=== PATIENT | female | born 1990 | race Caucasian/White ===

== ENCOUNTER → 2020-08-17 11:21 | Outpatient (BNVA) | payer OTHER, SELFPAY | PROVIDERS: Family Provider Electrodiagnostic Medicine; PCP Electrodiagnostic Medicine; Visit Provider Family Medicine | DX: Z20.828 Contact with and (suspected) exposure to other viral communicable diseases (principal); Z11.59 Encounter for screening for other viral diseases | CPT/HCPCS: 87635 ==

== ENCOUNTER → 2021-06-20 10:32 | Outpatient (BNVA) | payer OTHER, SELFPAY | PROVIDERS: PCP Electrodiagnostic Medicine; Visit Provider Nurse Practitioner Women's Health | DX: Z01.419 Encounter for gynecological examination (general) (routine) without abnormal findings (principal) | CPT/HCPCS: 88175 ==

== ENCOUNTER → 2022-07-31 13:27 | Outpatient (BNVA) | payer OTHER, SELFPAY | PROVIDERS: PCP Family Medicine; Visit Provider Family Medicine | DX: Z00.00 Encounter for general adult medical examination without abnormal findings (principal); R63.5 Abnormal weight gain | CPT/HCPCS: 80053; 80061; 82607; 84443; 85025 ==

== ENCOUNTER → 2024-04-15 08:14 | Outpatient (BNVA) | payer BC, SELFPAY | PROVIDERS: PCP Family Medicine; Visit Provider Family Medicine | DX: R53.83 Other fatigue (principal); I88.9 Nonspecific lymphadenitis, unspecified; E55.9 Vitamin D deficiency, unspecified; E03.9 Hypothyroidism, unspecified | CPT/HCPCS: 80053; 80061; 82607; 82652; 84443; 85025 ==

== ENCOUNTER 2024-04-23 15:54 | Outpatient (CLI) | payer BC, SELFPAY ==
--- NOTE | 2024-04-23 16:15 | USR_ITS ---
PROCEDURE INFORMATION: Exam: US Soft Tissue Head and Neck, Soft Tissue Exam date and time: 04/23/2024 4:03 PM Age: 33 years old Clinical indication: Mass, lump, or swelling in neck; Bilateral; Additional info: I88.9 - nonspecific lymphadenitis, unspecified TECHNIQUE: Imaging protocol: Real-time ultrasound scan of the head and neck with image documentation. Exam focused on the soft tissue in the region of clinical concern. COMPARISON: No relevant prior studies available. FINDINGS: Lymph nodes: Bilateral submandibular and submental lymph nodes are noted which have normal fatty andi. Largest left submandibular lymph node measures 1.8 x 0.7 x 1.8 centimetres and has a normal fatty andi. The largest right submandibular lymph node measures 1.8 x 0.5 x 2.3 cm and has a normal fatty andi. Soft tissues: Unremarkable. No fluid collections. US/US soft tissue head neck [id number] IMPRESSION: Bilateral submandibular lymph nodes as described above. They have normal fatty andi.
== END 2024-04-23 15:55 | disposition home or self-care (01) ==
LOC: RAD 15:55
PROVIDERS: PCP Family Medicine; Visit Provider Family Medicine
DX: I88.9 Nonspecific lymphadenitis, unspecified (principal)
CPT/HCPCS: 76536

== ENCOUNTER 2024-07-17 02:43 | Observation (INO) | payer BC, SELFPAY ==
[2024-07-17] VITALS (21 sets, daily range): BP systolic 93–121; BP diastolic 56–75; PULSE 89–117; RESP 9–20; TEMP 36.8–37.3; O2SAT 97–100; BMI 23.3
[2024-07-17 03:17] LABS: Basophils % 0.4 %; Eosinophils # 0.1 10^3/uL (0.0-0.8); Hematocrit 39.4 % (36-47); Lymphocytes # 1.7 10^3/uL (0.8-4.8); Mean Corpuscular HGB Conc 33.8 g/dL (30-55); Mean Corpuscular Hemoglobin 31.3 pg (27-33); Mean Corpuscular Volume 92.7 fl (85-98); Mean Platelet Volume 9.6 fL (7.4-10.4); Monocytes # 0.4 10^3/uL (0.2-0.9); Monocytes % 5.9 %; Neutrophils # 4.56 10^3/uL (1.8-7.7); Neutrophils % 67.6 %; Nucleated Red Blood Cells % 0 %; Platelet Count 298 10^3/cmm (157-399); Red Blood Count 4.25 10^6/uL (3.85-5.65); Red Cell Distribution Width 12.2 % (12.1-15.1); White Blood Count 6.76 10^3/uL (3.29-11.43)
--- NOTE | 2024-07-17 03:18 | ED_ITS ---
Documented by User: Kareem Whipple DO 07/17/24 03:20 HPI - Abdominal Pain 2 General: Chief Complaint: Abdominal Pain Stated Complaint: Lower abd pain Time Seen by Provider: 07/17/24 02:57 History of Present Illness: Presents to the ER with complaints of epigastric abdominal pain. Patient says started about a week ago. Patient does say eating and drinking makes it worse. She said the pain is typically intermittent but tonight it started about 9 PM after she ate and will go away. There is positive nausea vomiting diarrhea. Patient has never had any abdominal surgeries still has her gallbladder. Patient does take Protonix twice a day for stomach. Related Data Home Medications Medication Instructions Recorded Confirmed spironolactone 100 mg tablet 100 mg PO DAILY 04/13/20 04/15/24 levonorgestrel 21 mcg/24 hr (up to intrauterine 06/20/21 04/15/24 8 years) 52 mg intrauterine device (Mirena) Previous Rx's Medication Instructions Recorded semaglutide 0.25 mg or 0.5 mg (2 0.5 mg (0.736 mL) SUBCUT .[id number] 04/15/24 mg/3 mL) subcutaneous pen injector #3 mL (Ozempic) Allergies Allergy/AdvReac Type Severity Reaction Status Date / Time doxycycline Allergy vomiting Verified 07/17/24 02:56 Penicillins Allergy hives Verified 07/17/24 02:56 swelling, breathing issues Review of Systems 2 General: Reports: 10 or more systems reviewed and unremarkable except in HPI and below PFSH ED 2 PFSH: Medical History No pertinent past medical history neghx: htn,dm,thyroid,dvt/pe PCP: Dr. Segovia Urinary incontinence 03/07/2017: KEYANA. Found to have weak pelvic musculature. Kegel's exercises recommended. Surgical History Hx of oral surgery (~2010) Family History Grandfather Hypertension paternal Father Hypertension Grandmother Diabetes maternal Stroke maternal Denies family history of Colon cancer Ovarian cancer Heart disease Hypercholesteremia Breast cancer Uterine cancer Thyroid disease Social History (Reviewed 07/17/24 @ 03:19 by DARLING Guan Smoking and tobacco/nicotine status: never used tobacco/nicotine Physical Exam 2 Const: COMMON NORMALS: no acute distress, average body habitus, patient oriented x3, no limitations, healthy appearing, alert and well nourished HENMT: COMMON NORMALS: normocephalic, atraumatic, hearing grossly normal bilaterally, external ears normal, Normal external nose present and moist oral mucous membranes HEAD & SCALP: normocephalic and atraumatic NOSE: Normal external nose present EXTERNAL EAR: Yes external ears normal Neck/C-Spine: COMMON NORMALS: no JVD Chest: COMMONS NORMALS: normal inspection of the chest and normal palpation of entire chest wall Resp: COMMON NORMALS: normal respiratory effort, No retractions, No use of accessory muscles and clear to auscultation bilaterally AUSCULTATION: clear to auscultation bilaterally Cardio: COMMON NORMALS: no JVD, regular rate, regular rhythm, S1 normal heart sound present, S2 normal heart sound present, No gallops present (Cardio), No clicks present (Cardio), No murmurs present (Cardio) and No rub (Cardio) R ATE: regular rate RHYTHM: regular rhythm HEART SOUNDS: S1 normal heart sound present and S2 normal heart sound present GI: COMMON NORMALS: Normal to inspection, nondistended, normoactive bowel sounds present, Soft to palpation, No hepatosplenomegaly present and no masses; negative for non-tender (Tender to palpate over epigastric area) PALPATION: Y es Soft to palpation and Yes No hepatosplenomegaly present Neuro: COMMON NORMALS: patient oriented x3 SENSORIUM/ORIENTATION: Yes alert Course 2 Vital Signs: Vital signs: Vital Signs Temperature 98.2 F 07/17/24 02:56 Pulse Rate 93 07/17/24 07:00 Respiratory Rate 16 07/17/24 08:17 Blood Pressure 99/63 07/17/24 07:00 Pulse Oximetry 100 07/17/24 08:17 Oxygen Delivery Me thod Room Air 07/17/24 04:11 MDM - Abdominal Pain Medical Records I reviewed the patient's medical records. Lab Data I reviewed the patient's lab results. 07/17/24 03:11 07/17/24 03:11 Labs/Radiology: Laboratory Results WBC 6.76 10^3/uL (3.29-11.43) 07/17/24 03:11 RBC 4.25 10^6/uL (3.85-5.65) 07/17/24 03:11 Hgb 13.30 g/dL (11.27-16.99) 07/17/24 03:11 Hct 39.4 % (36-47) 07/17/24 03:11 MCV 92.7 fl (85-98) 07/17/24 03:11 MCH 31.3 pg (27-33) 07/17/24 03:11 MCHC 33.8 g/dL (30-55) 07/17/24 03:11 RDW 12.2 % (12.1-15.1) 07/17/24 03:11 Plt Count 298 10^3/cmm (157-399) 07/17/24 03:11 MPV 9.6 fL (7.4-10.4) 07/17/24 03:11 Neut % (Auto) 67.6 % 07/17/24 03:11 Lymph % (Auto) 25.0 % 07/17/24 03:11 [place] % (Auto) 5.9 % 07/17/24 03:11 Eos % (Auto) 1.0 % 07/17/24 03:11 Baso % (Auto) 0.4 % 07/17/24 03:11 Neut # (Auto) 4.56 10^3/uL (1.8-7.7) 07/17/24 03:11 Lymph # (Auto) 1.7 10^3/uL (0.8-4.8) 07/17/24 03:11 [place] # (Auto) 0.4 10^3/uL (0.2-0.9) 07/17/24 03:11 Eos # (Auto) 0.1 10^3/uL (0.0-0.8) 07/17/24 03:11 Baso # (Auto) 0.0 10^3/uL (0.0-0.1) 07/17/24 03:11 Nucleated RBC % (auto) 0 % 07/17/24 03:11 Nucleated RBCs # 0.0 /100WBC 07/17/24 03:11 Sodium 142 mmol/L (136-145) 07/17/24 03:11 Potassium 3.5 mmol/L (3.5-5.1) 07/17/24 03:11 Chloride 108 mmol/L (98-107) H 07/17/24 03:11 Carbon Dioxide 24 mmol/L (22-29) 07/17/24 03:11 Anion Gap 13.5 (5-19) 07/17/24 03:11 BUN 21 mg/dL (6-20) H 07/17/24 03:11 Creatinine 0.7 mg/dL (0.5-0.9) 07/17/24 03:11 GFR Calculation 95.8 mL/min (90-130) 07/17/24 03:11 Glucose 98 mg/dL (65-115) 07/17/24 03:11 Calculated Osmolality 297 mOsm/kg (285-295) H 07/17/24 03:11 Calcium 8.9 mg/dL (8.5-10.5) 07/17/24 03:11 Magnesium 1.8 mg/dL (1.7-2.3) 07/17/24 03:11 Total Bilirubin 0.4 mg/dL (0.15-1.2) 07/17/24 03:11 AST 12 U/L (0-32) 07/17/24 03:11 ALT 12 U/L (0-33) 07/17/24 03:11 Alkaline Phosphatase 85 U/L (35-105) 07/17/24 03:11 Total Protein 7.4 g/dL (6.6-8.7) 07/17/24 03:11 Albumin 4.6 g/dL (3.5-5.2) 07/17/24 03:11 Globulin 2.8 g/dL (1.3-4.6) 07/17/24 03:11 Lipase 38 U/L (13-60) 07/17/24 03:11 HCG, Qual Negative (Negative) 07/17/24 03:11 No radiology studies performed this visit Discharge Plan Discharge Patient Disposition: Placed in Observation Clinical Impression: Acute calculous cholecystitis, Cholelithiasis Condition: Stable Prescriptions: No Action spironolactone 100 mg tablet 100 mg PO DAILY Mirena 20 mcg/24 hours (6 yrs) 52 mg intrauterine device intrauterine Ozempic 0.25 mg or 0.5 mg (2 mg/3 mL) pen injector 0.5 mg SUBCUT .[id number] Qty: 3 0RF Referrals: Hung Hoyos DO [Primary Care Provider] - Sign Out Sign Out Data: Patient Sign Out occurred on 07/17/24 at 06:41. Patient's care was discussed, and care was transferred from Kareem Whipple DO to Alec Hernandez DO. Coding Level of Care Code ED Stamp Clerk for Chg Fwd Documented by User: Alec Hernandez DO 07/17/24 08:43 HPI - Abdominal Pain 2 General: Chief Complaint: Abdominal Pain Stated Complaint: Lower abd pain Time Seen by Provider: 07/17/24 02:57 Related Data Home Medications Medication Instructions Recorded Confirmed spironolactone 100 mg tablet 100 mg PO DAILY 04/13/20 04/15/24 levonorgestrel 21 mcg/24 hr (up to intrauterine 06/20/21 04/15/24 8 years) 52 mg intrauterine device (Mirena) Previous Rx's Medication Instructions Recorded semaglutide 0.25 mg or 0.5 mg (2 0.5 mg (0.736 mL) SUBCUT .[id number] 04/15/24 mg/3 mL) subcutaneous pen injector #3 mL (Ozempic) Allergies Allergy/AdvReac Type Severity Reaction Status Date / Time doxycycline Allergy vomiting Verified 07/17/24 02:56 Penicillins Allergy hives Verified 07/17/24 02:56 swelling, breathing issues PFSH ED 2 PFSH: Medical History No pertinent past medical history neghx: htn,dm,thyroid,dvt/pe PCP: Dr. Segovia Urinary incontinence 03/07/2017: KEYANA. Found to have weak pelvic musculature. Kegel's exercises recommended. Surgical History Hx of oral surgery (~2010) Family History Grandfather Hypertension paternal Father Hypertension Grandmother Diabetes maternal Stroke maternal Denies family history of Colon cancer Ovarian cancer Heart disease Hypercholesteremia Breast cancer Uterine cancer Thyroid disease Social History Smoking and tobacco/nicotine status: never used tobacco/nicotine Course 2 Vital Signs: Vital signs: Vital Signs Temperature 98.2 F 07/17/24 02:56 Pulse Rate 93 07/17/24 07:00 Respiratory Rate 16 07/17/24 08:17 Blood Pressure 99/63 07/17/24 07:00 Pulse Oximetry 100 07/17/24 08:17 Oxygen Delivery Me thod Room Air 07/17/24 04:11 MDM - Abdominal Pain Medical Decision Making Findings consistent with acute cholecystitis on ultrasound liver white count and liver function are normal patient continues significant pain. We will admit to Dr. Dang discussed with him patient has been given Cipro and Flagyl since she is allergic to penicillin and cannot take Zosyn. Pain medications have been given as well. Dr. Dang seen the patient in the emergency room. Lab Data 07/17/24 03:11 07/17/24 03:11 Labs/Radiology: Laboratory Results WBC 6.76 10^3/uL (3.29-11.43) 07/17/24 03:11 RBC 4.25 10^6/uL (3.85-5.65) 07/17/24 03:11 Hgb 13.30 g/dL (11.27-16.99) 07/17/24 03:11 Hct 39.4 % (36-47) 07/17/24 03:11 MCV 92.7 fl (85-98) 07/17/24 03:11 MCH 31.3 pg (27-33) 07/17/24 03:11 MCHC 33.8 g/dL (30-55) 07/17/24 03:11 RDW 12.2 % (12.1-15.1) 07/17/24 03:11 Plt Count 298 10^3/cmm (157-399) 07/17/24 03:11 MPV 9.6 fL (7.4-10.4) 07/17/24 03:11 Neut % (Auto) 67.6 % 07/17/24 03:11 Lymph % (Auto) 25.0 % 07/17/24 03:11 [place] % (Auto) 5.9 % 07/17/24 03:11 Eos % (Auto) 1.0 % 07/17/24 03:11 Baso % (Auto) 0.4 % 07/17/24 03:11 Neut # (Auto) 4.56 10^3/uL (1.8-7.7) 07/17/24 03:11 Lymph # (Auto) 1.7 10^3/uL (0.8-4.8) 07/17/24 03:11 [place] # (Auto) 0.4 10^3/uL (0.2-0.9) 07/17/24 03:11 Eos # (Auto) 0.1 10^3/uL (0.0-0.8) 07/17/24 03:11 Baso # (Auto) 0.0 10^3/uL (0.0-0.1) 07/17/24 03:11 Nucleated RBC % (auto) 0 % 07/17/24 03:11 Nucleated RBCs # 0.0 /100WBC 07/17/24 03:11 Sodium 142 mmol/L (136-145) 07/17/24 03:11 Potassium 3.5 mmol/L (3.5-5.1) 07/17/24 03:11 Chloride 108 mmol/L (98-107) H 07/17/24 03:11 Carbon Dioxide 24 mmol/L (22-29) 07/17/24 03:11 Anion Gap 13.5 (5-19) 07/17/24 03:11 BUN 21 mg/dL (6-20) H 07/17/24 03:11 Creatinine 0.7 mg/dL (0.5-0.9) 07/17/24 03:11 GFR Calculation 95.8 mL/min (90-130) 07/17/24 03:11 Glucose 98 mg/dL (65-115) 07/17/24 03:11 Calculated Osmolality 297 mOsm/kg (285-295) H 07/17/24 03:11 Calcium 8.9 mg/dL (8.5-10.5) 07/17/24 03:11 Magnesium 1.8 mg/dL (1.7-2.3) 07/17/24 03:11 Total Bilirubin 0.4 mg/dL (0.15-1.2) 07/17/24 03:11 AST 12 U/L (0-32) 07/17/24 03:11 ALT 12 U/L (0-33) 07/17/24 03:11 Alkaline Phosphatase 85 U/L (35-105) 07/17/24 03:11 Total Protein 7.4 g/dL (6.6-8.7) 07/17/24 03:11 Albumin 4.6 g/dL (3.5-5.2) 07/17/24 03:11 Globulin 2.8 g/dL (1.3-4.6) 07/17/24 03:11 Lipase 38 U/L (13-60) 07/17/24 03:11 HCG, Qual Negative (Negative) 07/17/24 03:11 Discharge Plan Discharge Patient Disposition: Placed in Observation Clinical Impression: Acute calculous cholecystitis, Cholelithiasis Condition: Stable Prescriptions: No Action spironolactone 100 mg tablet 100 mg PO DAILY Mirena 20 mcg/24 hours (6 yrs) 52 mg intrauterine device intrauterine Ozempic 0.25 mg or 0.5 mg (2 mg/3 mL) pen injector 0.5 mg SUBCUT .[id number] Qty: 3 0RF Referrals: Hung Hoyos DO [Primary Care Provider] - Sign Out Sign Out Data: Patient Sign Out occurred on 07/17/24 at 06:41. Patient's care was discussed, and care was transferred from Kareem Whipple DO to Alec Hernandez DO. Coding Level of Care Code ED Stamp Clerk for Alfred Lee
[2024-07-17 03:32] LABS: Alanine Aminotransferase 12 U/L (0-33); Albumin Level 4.6 g/dL (3.5-5.2); Alkaline Phosphatase 85 U/L (35-105); Anion Gap 13.5 (5-19); Aspartate Amino Transferase 12 U/L (0-32); Blood Urea Nitrogen 21 mg/dL (6-20); Calcium 8.9 mg/dL (8.5-10.5); Carbon Dioxide 24 mmol/L (22-29); Chloride 108 mmol/L (98-107); Creatinine Clr Calc Pharmacy 95.2557; Globulin 2.8 g/dL (1.3-4.6); Glomerular Filtration Rate 95.8 mL/min (90-130); Glucose 98 mg/dL (65-115); Lipase 38 U/L (13-60); Magnesium 1.8 mg/dL (1.7-2.3); Osmolality Calculated 297 mOsm/kg (285-295); Potassium 3.5 mmol/L (3.5-5.1); Sodium 142 mmol/L (136-145); Total Bilirubin 0.4 mg/dL (0.15-1.2); Total Protein 7.4 g/dL (6.6-8.7)
[2024-07-17] MEDS: lidocaine 2% viscous 15 ML, aluminum-mag hydrox-simethicon 30 ML, sucralfate oral liq 1 GM PO (03:58)
--- NOTE | 2024-07-17 04:31 | USR_ITS ---
PROCEDURE INFORMATION: Exam: US Abdomen, Limited; Right Upper Quadrant Exam date and time: 07/17/2024 5:57 AM Age: 33 years old Clinical indication: Abdominal pain; Epigastric; Additional info: Ruq/epigastric pain, n/v, worse when eating TECHNIQUE: Imaging protocol: Real time ultrasound of the abdomen with image documentation. Limited exam focused on the right upper quadrant. COMPARISON: No relevant prior studies available. FINDINGS: Liver: Simple cyst within the left hepatic lobe 0.8 cm diameter. Gallbladder: Cholelithiasis. Gallbladder wall thickness 6 mm. Negative for pericholecystic fluid. Biliary ducts: Normal. No stones. No dilation. Pancreas: Visualized pancreas is unremarkable. Right kidney: Normal. No mass. No hydronephrosis. Portal venous: Main portal vein is patent. Normal flow direction. US/US abdomen limited [id number] IMPRESSION: 1. Cholelithiasis. Gallbladder wall thickening. Consider acute cholecystitis. 2. Recommend HIDA scan evaluation.
--- NOTE | 2024-07-17 04:38 | PC.NURSE ---
Rounded on pt. No relief from gi cocktail. aware. US ordered and contacted.
[2024-07-17] MEDS: ketorolac 30 mg/mL INJ IVP (04:55)
[2024-07-17] MEDS: ondansetron 2 mg/ML SDV 2 mL 4 MG IVP (04:55)
[2024-07-17] MEDS: sodium chloride 0.9% 1,000 ML 999 ML IV (08:17)
[2024-07-17] MEDS: morphine 4 mg/mL SDV 1 mL IVP (08:17)
[2024-07-17] MEDS: famotidine 20 mg/2 mL INJ 40 MG IVP (08:18)
[2024-07-17] MEDS: ciprofloxacin 400 MG/200 ML PREMIX 200 MG IV (08:19)
[2024-07-17 08:22] LABS: HCG, Serum Qual Negative (Negative)
--- NOTE | 2024-07-17 08:36 | P.HP_ITS ---
Providers/Chief Complaint 2 Primary Care Provider: Hung Hoyos DO Chief Complaint: Lower abd pain History of Present Illness Amirah Marinelli is a 33 year old female Patient is a 33-year-old female who presents to the hospital with right upper quadrant abdominal pain. Pain has been intermittent for the last week but over the last 24 hours it become constant the patient had some dry heaving also. Workup in the ED showed normal labs white count but he has ultrasound of the right upper quadrant is concerning for cholecystitis. Review of Systems 2 General: Reports: 10 or more systems reviewed and unremarkable except in HPI and below Medications/Allergies Home Medications Medication Instructions Recorded Confirmed Last Taken Type spironolactone 100 mg tablet 100 mg PO DAILY 04/13/20 04/15/24 Unknown History levonorgestrel 21 mcg/24 hr (up to intrauterine 06/20/21 04/15/24 Unknown History 8 years) 52 mg intrauterine device (Mirena) semaglutide 0.25 mg or 0.5 mg (2 0.5 mg (0.736 mL) SUBCUT .[id number] 04/15/24 04/15/24 Unknown Rx mg/3 mL) subcutaneous pen injector #3 mL (Ozempic) Allergies Allergy/AdvReac Type Severity Reaction Status Date / Time doxycycline Allergy vomiting Verified 07/17/24 02:56 Penicillins Allergy hives Verified 07/17/24 02:56 swelling, breathing issues PFSH Acute 2 PFSH: Medical History No pertinent past medical history neghx: htn,dm,thyroid,dvt/pe PCP: Dr. Segovia Urinary incontinence 03/07/2017: KEYANA. Found to have weak pelvic musculature. Kegel's exercises recommended. Surgical History Hx of oral surgery (~2010) Family History Grandfather Hypertension paternal Father Hypertension Grandmother Diabetes maternal Stroke maternal Denies family history of Colon cancer Ovarian cancer Heart disease Hypercholesteremia Breast cancer Uterine cancer Thyroid disease Social History Smoking and tobacco/nicotine status: never used tobacco/nicotine Vitals/I&O/Wt Last Vital Signs Temp 98.2 F 07/17/24 02:56 Pulse 93 07/17/24 07:00 Resp 16 07/17/24 08:17 BP 99/63 07/17/24 07:00 Pulse Ox 100 07/17/24 08:17 O2 Del Method Room Air 07/17/24 04:11 Weight last 48 hrs Weight 128 lb Physical Exam 2 Narrative: General : Patient is well developed , no acute distress, oriented x3 Head : Normal cephalic, a-traumatic. Nose : Mucous membranes are without erythema. Lungs : Equal chest rise bilaterally, no use of accessory muscles, trachea is midline. CV : Rate and rhythm are normal. Abdomen : Abdomen is soft, there is some tenderness in the right upper quadrant no Souza sign at this time Extremities : No edema. Upper extremities are normal bilaterally. Back : non-tender to palpation, no CVA tenderness. Data 07/17/24 03:11 07/17/24 03:11 A&P Assessment and plan (1) Acute calculous cholecystitis: Attestations 2 Medical Necessity Statement*: After a complete history, physical examination and review of all available clinical data the following is my assessment. I explained to the patient that this point I think her symptoms are most likely related with chronic cholecystitis and be really colic rather than acute cholecystitis but due to his acute presentation with persistent abdominal pain which may represent acute cholecystitis I was willing to discuss the possibility of proceeding with cholecystectomy, I explained that her main 2 options are going home with antibiotics and An elective procedure versus staying in house and having his cholecystectomy done during this admission, I explained that proceed with a cholecystectomy in the acute setting is always associated with increased risk for adverse side effects and morbidity, after an extensive discussion she decided to proceed with cholecystectomy in the acute setting. All the risk and benefits of the procedure were discussed with the patient including the risks of bleeding, infection, damage to surrounding structures including liver, duodenum, colon, risk of injuring bile ducts requiring extensive surgery at higher level of care facility, risk of retained stones, bile leak, bilioma, need for subtotal cholecystectomy with possible recurrent symptoms and bile leak, hernia and wound related complications, need to conversion to open procedure. Patient shows understanding and would like to proceed. -N.p.o. -IV fluids -Zosyn -Toradol every 6 hours -On-call to the OR Coding Level of Care Code Acute Code for Chg Fwd Diagnoses Acute calculous cholecystitis K80.00
--- NOTE | 2024-07-17 09:54 | P.ANESASSM_ITS ---
Pre-Anesthetic Assessment Height/Weight: Height 5 ft 2 in Weight 128 lb Temp Pulse Resp BP Pulse Ox O2 Del Method 98.2 F 93 16 95/57 100 Room Air 07/17/24 02:56 07/17/24 09:19 07/17/24 08:17 07/17/24 09:19 07/17/24 09:19 07/17/24 04:11 Preop Diagnosis: Acute cholecystitis Operation Date: 07/17/24 09:50 Proposed Procedures p Laparoscopic Cholecystectomy(Not Applicable) - Alden Dang MD Was Beta Gilson taken within 24 hours: N/A Was Clonidine taken within 24 hours: N/A Social No alcohol and No tobacco Exam alert, oriented x 3, clear to auscultation bilaterally and regular rate & rhythm Airway Submandibular: within normal limits Cervical ROM: within normal limits Mallampati: Class I Dentition: full Anesthetic Plan ASA status: 2E Anesthesia: General Other: Patient has no history of anesthesia Reportedly ate chicken and mashed potatoes around 9 PM last night Patient was given a GI cocktail in the ED around 5 AM and has had reflux and symptoms since that time. Received famotidine without relief Patient denies any pulmonary or cardiac issues METs greater than 4 Labs reviewed and WNL Plan for GETA with RSI Medications/Allergies Home Medications Medication Instructions Recorded Confirmed Last Taken Type spironolactone 100 mg tablet 100 mg PO DAILY 04/13/20 04/15/24 Unknown History levonorgestrel 21 mcg/24 hr (up to intrauterine 06/20/21 04/15/24 Unknown History 8 years) 52 mg intrauterine device (Mirena) semaglutide 0.25 mg or 0.5 mg (2 0.5 mg (0.736 mL) SUBCUT .[id number] 04/15/24 04/15/24 Unknown Rx mg/3 mL) subcutaneous pen injector #3 mL (Ozempic) Allergies Allergy/AdvReac Type Severity Reaction Status Date / Time doxycycline Allergy vomiting Verified 07/17/24 02:56 Penicillins Allergy hives Verified 07/17/24 02:56 swelling, breathing issues PFSH Anesthesia Medical History No pertinent past medical history neghx: htn,dm,thyroid,dvt/pe PCP: Dr. Segovia Urinary incontinence 03/07/2017: KEYANA. Found to have weak pelvic musculature. Kegel's exercises recommended. Surgical History Hx of oral surgery (~2010) Family History Grandfather Hypertension paternal Father Hypertension Grandmother Diabetes maternal Stroke maternal Denies family history of Colon cancer Ovarian cancer Heart disease Hypercholesteremia Breast cancer Uterine cancer Thyroid disease Social History Smoking and tobacco/nicotine status: never used tobacco/nicotine Data Anesthesia 07/17/24 03:11 07/17/24 03:11 Short CBC 07/17/24 Range/Units 03:11 WBC 6.76 (3.29-11.43) 10^3/uL Hgb 13.30 (11.27-16.99) g/dL Hct 39.4 (36-47) % MCV 92.7 (85-98) fl Plt Count 298 (157-399) 10^3/cmm Neut % (Auto) 67.6 % Neut # (Auto) 4.56 (1.8-7.7) 10^3/uL BMP 07/17/24 03:11 Sodium 142 Potassium 3.5 Chloride 108 H Carbon Dioxide 24 BUN 21 H Creatinine 0.7 Glucose 98 Calcium 8.9 Liver Function 07/17/24 Range/Units 03:11 Total Bilirubin 0.4 (0.15-1.2) mg/dL AST 12 (0-32) U/L ALT 12 (0-33) U/L Alkaline Phosphatase 85 (35-105) U/L Albumin 4.6 (3.5-5.2) g/dL Cardiac Studies: 2 No Data to Display
[2024-07-17] MEDS: sodium chloride 0.9% 1,000 ML 30 ML IV (10:42)
[2024-07-17] MEDS: metroNIDAZOLE IV 500 MG/100 ML PREMIX 100 MG IV (10:43)
[2024-07-17] MEDS: lidocaine-epi 1% 20 mL INJ 10 ML INJECTION (11:11)
[2024-07-17] MEDS: BUPivacaine 0.25% INJ 10 mL INJECTION (11:11)
--- NOTE | 2024-07-17 14:06 | PM.OP ---
Operative Report Date of procedure: July 17, 2024 Pre-op diagnosis: Acute cholecystitis Post-op diagnosis: Acute on chronic cholecystitis with cholelithiasis Post-op findings: Distended gallbladder with extremely thick wall, short cystic artery originating from the right hepatic artery which was noted crossing behind the gallbladder. Cystic duct was almost absent and extremely dilated, common bile duct was also dilated, severe chronic inflammation at the level of the hepatocystic triangle. Procedure done: Laparoscopic cholecystectomy Implants: None Specimens removed/disposition: Gallbladder Surgeon: Alden Dang MD Estimated blood loss: 10 Complications: None apparent Brief History: This is a 33-year-old female who presents to the hospital with abdominal pain in the right upper quadrant, ultrasound of the gallbladder showed findings consistent with possible acute cholecystitis. After discussion of all the risks and benefits we decided to proceed with a laparoscopic possible open cholecystectomy Procedure: Patient was brought into the OR, she was placed in a supine position. General anesthesia was given. The abdomen was prepped and draped in the usual sterile fashion. The abdomen was accessed via infraumbilical incision with an open technique, access on trocar was placed and fixed to the fascia with #0 Vicryl. Pneumoperitoneum was created and initial laparoscopy showed no evidence of visceral injury during entry. Additional 5 mm trocars were placed in the epigastrium right upper quadrant and right flank under direct visualization. The gallbladder was noted to be distended and it was difficult to grasp, I decided to decompress it I held the gallbladder from the fundus and then proceeded to insert a decompression needle, once a decompression needle was inserted no evidence of bile was noted, likely indicating that the gallbladder was full of stones and very thick bile. I was able to grasp the gallbladder from the fundus and retracted cephalad, at this point it was apparent that the common bile duct appear significantly dilated as it was easily visible on his path to the duodenum. I grasped the infundibulum and retracted on the inferolateral direction to provide better exposure of the hepatocystic triangle. Grasping the infundibulum was difficult impacted stone was noted at this level. Once I got appropriate visualization I proceeded to open the peritoneum anterior to the hepatocystic triangle and I carried this opening to the medial and lateral aspect of the gallbladder to the edges of the liver and then of the sides of the gallbladder to allow for better exposure. Severe inflammation was noted at the level of the hepatocystic triangle, there were thick peritoneal runts and neovascularization. With careful blunt dissection I was able to encircle the cystic artery very close to the gallbladder. At this point it was apparent that I was not going to be able to achieve a critical view of safety due to severe inflammation at the level of Calot's triangle and therefore I decided to proceed with transection of the cystic artery, cystic artery was double clipped proximally and single clipped distally and transected, this opened up the space allowing for dissection between the gallbladder and the cystic plate. It was apparent that the additional neovascularization was located in the posterior aspect of the gallbladder, the right hepatic artery was also noted coming from the medial aspect of the gallbladder and diving into the liver behind the gallbladder. I attempted Gambell dissection of the gallbladder and infundibulum to allow for better visualization but very little advancement was achieved, at this point I decided to switch to a top-down approach, I the gallbladder from the liver bed starting at the fundus and once I was at the level of the cystic plate I proceeded with careful blunt dissection by pushing down the peritoneal runts in order to provide better exposure. I was able to completely dissect the gallbladder to the level of the cystic duct. The cystic duct was extremely dilated measuring around 0.8 cm, since the clip call or contact centre team leader that we had available was unable to encircle the whole cystic duct I decided to proceed stable in the cystic duct. I upsized the epigastric trocar to a 12 mm then I ensured that there was no other structures entering the gallbladder and that the plane of dissection was just below the infundibulum of the gallbladder, I also used a [place] dissector to kindly milk the cystic duct ensuring that there were no retained stones. I then proceeded to transect the cystic duct using a 45 mm blue load Endo QUINN stapler. Once the gallbladder was removed there was minimal amount of oozing from the lateral corner of the staple line, this was controlled with 1 clip. I then proceeded to retrieve the specimen via the umbilical trocar site in an Endo Catch bag. I evaluated the specimen before sending it to pathology to ensure an adequate landing zone of the staple line was this was confirmed the specimen was sent to pathology. I then proceeded to irrigate the liver bed, georgina appear healthy clips on the cystic artery appeared intact, there was no evidence of bile leak or bleeding at this time. The epigastric trocar was removed and the port site was closed with a Reji-Ave suture passer under direct visualization. The umbilical trocar was removed and the port was closed with a Reji-Ave suture passer and 0 Vicryl under direct visualization. Final laparoscopic evaluation of the abdomen showed no evidence of additional pathology. I then proceeded to remove the right upper quadrant trocar under direct visualization and the right flank trocar was used to evacuate the pneumoperitoneum and subsequently removed. The wounds were closed in layers using #3-0 Vicryl for the subcutaneous tissue and #4 Monocryl for the skin. Local anesthesia and Dermabond was then applied. At the end of the procedure all counts were correct, the patient tolerated well the procedure and was transferred to the PACU in stable condition.
== END 2024-07-17 15:47 | disposition home or self-care (01) ==
LOC: ER 08:43 → MEDSURG 08:51
PROVIDERS: Emergency Medicine; Admitting Provider Surgery; Emergency Provider Family Medicine; PCP Family Medicine; Visit Provider Surgery
PROC: 0FT44ZZ Resection of Gallbladder, Percutaneous Endoscopic Approach (ICD-10-PCS; CPT 47562; principal; 2024-07-17 09:40)
DX: K80.10 Calculus of gallbladder with chronic cholecystitis without obstruction (principal)
CPT/HCPCS: 47562; 76705; 80053; 83690; 83735; 84703; 85025; 88304; 96365; 96375; 99285; G0378; J0131; J0330; J0744; J1100; J1170; J1200; J1885; J2250; J2270; J2405; J2704; J3010; J3490; J7030

== ENCOUNTER 2024-07-21 12:52 | Emergency (ER) | payer BC, SELFPAY ==
[2024-07-21 12:56] VITALS: BP 119/80; PULSE 104; RESP 16; O2SAT 100; BMI 25.9
--- NOTE | 2024-07-21 13:02 | USCV_ITS ---
Amirah Marinelli Age: 33 Gender: F : 1990 Exam Date: 07/21/2024 13:20 Ordering Phys: Shanna Vee MD Technologist: SUNDAR [place] [facility] [place] LLE PAIN AND SWELLING HISTORY: Lower extremity swelling. Lower extremity pain. PROCEDURES: Venous duplex imaging was performed in only the left lower extremity. The following venous structures were evaluated: common femoral vein, profunda vein, proximal portion of the greater saphenous vein, superficial femoral vein, and the popliteal vein. In addition, the posterior tibial and peroneal trunk were evaluated. Serial compression, augmentation maneuvers, and spectral Doppler flow evaluation were performed. FINDINGS: Normal 2-D Doppler and augmentation and compressibility throughout the lower extremity venous structures. Additional imaging through the proximal calf veins also reveals no thrombus. Limited evaluation of the greater saphenous vein is patent with no thrombus. CONCLUSIONS No DVT left lower extremity. Dr. Belia Duong DO (Electronically Signed) Final Date: 21 July 2024 14:23 S
--- NOTE | 2024-07-21 14:47 | ED_ITS ---
HPI - Extremity Problem General: Chief complaint: Extremity Problem,Nontraumatic Stated complaint: post surgery - swelling in left leg Time Seen by Provider: 07/21/24 13:59 History of Present Illness: 33-year-old female presents emergency ro om complaining of swelling and mild discomfort in the lateral portion of her left hip. We have seen her over the weekend she had Zee lithiasis mild cholecystitis she had underwent cholecystectomy and has been doing well since then. She has some mild swelling now she has not been laying predominantly on her left side. She has no pain in the lower leg. No shortness of breath or chest discomfort. No injury no fall. Associated symptoms: Deny chest pain, fever(s) or rash Related Data Home Medications Medication Instructions Recorded Confirmed spironolactone 100 mg tablet 100 mg PO DAILY 04/13/20 07/21/24 levonorgestrel 21 mcg/24 hr (up to 1 device intrauterine .Q6Y 06/20/21 07/21/24 8 years) 52 mg intrauterine device (Mirena) polyethylene glycol 3350 17 gram 17 g PO DAILY PRN Constipation 07/21/24 07/21/24 oral powder packet (Miralax) semaglutide 0.25 mg or 0.5 mg (2 0.5 mg SUBCUT .[id number] 07/21/24 07/21/24 mg/3 mL) subcutaneous pen injector Previous Rx's Medication Instructions Recorded ciprofloxacin HCl 250 mg tablet 250 mg PO Q12H #14 tabs 07/17/24 (Cipro) meloxicam 7.5 mg tablet 7.5 mg PO DAILY 7 days #7 tabs 07/17/24 oxycodone 5 mg tablet 5 mg PO Q8H PRN pain 5 days #14 07/17/24 tabs pantoprazole 40 mg tablet,delayed 40 mg PO DAILY #14 tabs 07/17/24 release Allergies Allergy/AdvReac Type Severity Reaction Status Date / Time doxycycline Allergy vomiting Verified 07/17/24 02:56 Penicillins Allergy hives Verified 07/17/24 02:56 swelling, breathing issues Review of Systems Const: Denies: fever(s) or chills Card: Denies: chest pain Resp: Denies: dyspnea GI: Denies: abdominal pain : Denies: dysuria, urinary frequency or urinary urgency Musc: Denies: neck pain or back pain Skin/Breast: Denies: rash PFSH ED PFSH: Medical History No pertinent past medical history neghx: htn,dm,thyroid,dvt/pe PCP: Dr. Segovia Urinary incontinence 03/07/2017: [facility]. Found to have weak pelvic musculature. Kegel's exercises recommended. Surgical History Hx of oral surgery (~2010) Family History Grandfather Hypertension paternal Father Hypertension Grandmother Diabetes maternal Stroke maternal Denies family history of Colon cancer Ovarian cancer Heart disease Hypercholesteremia Breast cancer Uterine cancer Thyroid disease Social History Smoking and tobacco/nicotine status: never used tobacco/nicotine Physical Exam Const: GENERAL APPEARANCE: cooperative ORIENTATION/CONSCIOUSNESS: Yes awake, Yes oriented to person, Yes oriented to place and Yes oriented to time HENMT: COMMON NORMALS: normocephalic, atraumatic and hearing grossly normal bilaterally HEAD & SCALP: normocephalic and atraumatic Resp: COMMON NORMALS: normal respiratory effort, No retractions, No use of accessory muscles and clear to auscultation bilaterally AUSCULTATION: clear to auscultation bilaterally Cardio: COMMON NORMALS: regular rate, regular rhythm and No murmurs present (Cardio) RATE: regular rate RHYTHM: regular rhythm Extremity: COMMON NORMALS: normal to inspection, capillary refill normal, no clubbing, cyanosis or edema, no calf tenderness and no pedal edema OTHER: Mild swelling over the left greater trochanter slight tenderness. Examination of the left knee and left hip full range of motion mild discomfort at the hip with internal/external rotation no discomfort at the knee joints both like intact and stable. Neuro: SENSORIUM/ORIENTATION: Yes oriented to person, Yes oriented to place and Yes oriented to time Skin: COMMON NORMALS: no rashes or lesions noted GENERAL SKIN EXAM: no rashes or lesions noted Course Vital Signs: Vital signs: Vital Signs Pulse Rate 102 H 07/21/24 15:08 Respiratory Rate 16 07/21/24 12:56 Blood Pressure 117/59 07/21/24 15:08 Pulse Oximetry 99 07/21/24 15:08 Oxygen Delivery Me thod Room Air 07/21/24 12:56 MDM - Extremity (Nontraumatic) Medical Decision Making Patient has full range of motion no deformities crepitus or pain with examinati on of the left knee examination of left hip mild tenderness lateral hip over the area greater trochanter. Suspect patient has mild trochanteric bursitis. Venous duplex was negative for DVT. Tylenol and ibuprofen. Overall patient nonseptic in appearance follow-up as needed Medical Records I reviewed the patient's medical records. All radiology interpretation(s) finalized by discharge Discharge Plan Discharge Patient Disposition: Home Clinical Impression: Trochanteric bursitis of left hip Condition: Stable Prescriptions: No Action spironolactone 100 mg tablet 100 mg PO DAILY Mirena 20 mcg/24 hours (6 yrs) 52 mg intrauterine device 1 device intrauterine .Q6Y meloxicam 7.5 mg tablet 7.5 mg PO DAILY 7 Days Qty: 7 0RF pantoprazole 40 mg tablet,delayed release (DR/EC) 40 mg PO DAILY Qty: 14 0RF oxycodone 5 mg tablet 5 mg PO Q8H PRN (Reason: pain) 5 Days Qty: 14 0RF ciprofloxacin HCl [Cipro] 250 mg tablet 250 mg PO Q12H Qty: 14 0RF polyethylene glycol 3350 [Miralax] 17 gram powder in packet 17 g PO DAILY PRN (Reason: Constipation) semaglutide 0.25 mg or 0.5 mg (2 mg/3 mL) pen injector 0.5 mg SUBCUT .[id number] Discharge Orders: Discharge ED (Routine); Ordered 07/21/24 Ordered By: Alec Hernandez Referrals: Hung Hoyos DO [Primary Care Provider] - Discharge Diet: Usual diet Discharge Activity: Increase activity as tolerated Patient Instructions: Opioid Safety, Pain Management Activity Restrictions/Additional Instructions: Thank you for choosing [facility] for your healthcare needs today. It is very important that you follow up as instructed or that you return to the Emergency Department should you have concerns or if your condition changes or worsens in any way. You are seen in the emergency room complaint of pain in left leg ultrasound not show any blood clot examination leg does not show any indication of significant injury. Most of the pain and swelling is in the lateral part of your hip suggestive of a trochanteric bursitis. Recommend that you use ice in the area. You can use Tylenol or ibuprofen. You can continue to use the oxycodone avoid heating pads avoid direct pressure in that area for symptoms persist follow-up with your primary care doctor Coding Level of Care Code ED Waste Elimination for Alfred Lee
[2024-07-21 15:08] VITALS: BP 117/59; PULSE 102; O2SAT 99
== END 2024-07-21 15:09 | disposition home or self-care (01) ==
PROVIDERS: Emergency Provider Family Medicine; PCP Family Medicine
DX: M70.62 Trochanteric bursitis, left hip (principal); Z79.85 Long-term (current) use of injectable non-insulin antidiabetic drugs
CPT/HCPCS: 93971; 99284